=== PATIENT | female | born 1945 | race Caucasian/White ===

== ENCOUNTER 2018-01-02 09:18 | Emergency (ER) | payer MEDICARE ==
[~2018-01-02] VITALS: Ht 167.6 cm; Wt 70.0 kg
[~2018-01-02 09:18] MED LIST: DONE5TAB7 PO; LAMO150T PO; PANT20TA2 PO; SERO25TA PO
[2018-01-02 09:31] VITALS: BP 148/69; PULSE 82; RESP 18; TEMP 98.1; O2SAT 95
[2018-01-02 10:36] LABS: AUTOMATED NEUTROPHIL # 4.2 TH/MM3 (1.8-7.7); BASOPHIL % 0.7 % (0.0-2.0); EOSINOPHIL # 0.2 TH/MM3 (0-0.4); EOSINOPHIL % 3.6 % (0.0-4.0); HEMATOCRIT 38.2 % (35.0-46.0); HEMOGLOBIN 12.9 GM/DL (11.6-15.3); LYMPH % 20.2 % (9.0-44.0); LYMPHOCYTE # 1.3 TH/MM3 (1.0-4.8); MEAN CELL VOLUME 92.2 FL (80.0-100.0); MEAN CORPUSCULAR HGB CONC 33.6 % (32.0-36.0); MEAN PLATELET VOLUME 8.3 FL (7.0-11.0); MONO % 10.1 % (0.0-8.0); MONOCYTE # 0.6 TH/MM3 (0-0.9); NEUT % 65.4 % (16.0-70.0); PLATELET COUNT 265 TH/MM3 (150-450); RED BLOOD COUNT 4.15 MIL/MM3 (4.00-5.30); RED CELL DISTRIBUTION WIDTH 12.8 % (11.6-17.2); WHITE BLOOD COUNT 6.4 TH/MM3 (4.0-11.0)
[2018-01-02] MEDS ORDERED: DONE10TA7 PO (10:42)
[2018-01-02] MEDS ORDERED: QUET1TAB9 PO (10:42)
[2018-01-02] MEDS ORDERED: BUSP15TA PO (10:42)
[2018-01-02] MEDS ORDERED: CIME300T PO (10:42)
[2018-01-02] MEDS ORDERED: LOPE-1 PO (10:42)
[2018-01-02] MEDS ORDERED: ZOLO100T PO (10:42)
[2018-01-02] MEDS ORDERED: PRIM50 PO (10:42)
--- NOTE | 2018-01-02 10:44 | RADRPT ---
EXAM DATE/TIME: 01/02/2018 10:07 [facility] COMPARISON: No previous studies available for comparison. INDICATIONS : Shortness of breath for one day after fall. MEDICAL HISTORY : None. SURGICAL HISTORY : Hemorrhoidectomy. Hiatal hernia repair ENCOUNTER: Initial ACUITY: 1 day PAIN SCORE: 0/10 LOCATION: Bilateral chest FINDINGS: There is a mild infiltrate in the left lung base. There is some prominence of the pulmonary vasculatu re. The right lung is otherwise clear. The heart size is upper limits of normal. There is no pneumoth orax. The bony structures are grossly intact. CONCLUSION: 1. Mild left lower lung infiltrate. 2. Pulmonary venous congestion. Karsten Snider MD on January 02, 2018 at 10:41 Board Certified Radiologist. This report was verified electronically.
[2018-01-02 10:45] LABS: BILIRUBIN, URINE NEG (NEG); BLOOD, URINE SMALL (NEG); GLUCOSE,URINE NEG (NEG); KETONE, URINE NEG (NEG); MUCUS URINE FEW /lpf (OCC); NITRITE,URINE NEG (NEG); URINE COLOR YELLOW (YELLW/STRAW); URINE LEUKOCYTE ESTERASE NEG (NEG)
[2018-01-02] MEDS ORDERED: ZENP1000 PO (10:45)
[2018-01-02] MEDS ORDERED: DEXI60CA3 PO (10:45)
[2018-01-02] MEDS ORDERED: ACET-822 PO (10:45)
--- NOTE | 2018-01-02 10:47 | RADRPT ---
EXAM DATE/TIME: 01/02/2018 10:22 [facility] COMPARISON: CT BRAIN W/O CONTRAST, May 12, 2017, 13:16. INDICATIONS : Fall onto metal table today, laceration to forehead. RADIATION DOSE: 56.35 CTDIvol (mGy) MEDICAL HISTORY : Dementia. Seizures. SURGICAL HISTORY : None. ENCOUNTER: Initial ACUITY: 1 day PAIN SCALE: 6/10 LOCATION: Bilateral head TECHNIQUE: Multiple contiguous axial images were obtained of the head. Using automated exposure control and adj ustment of the mA and/or kV according to patient size, radiation dose was kept as low as reasonably a chievable to obtain optimal diagnostic quality images. DICOM format image data is available electro nically for review and comparison. FINDINGS: CEREBRUM: The ventricles are normal for age. No evidence of midline shift, mass lesion, hemorrhage or acute in farction. No extra-axial fluid collections are seen. POSTERIOR FOSSA: The cerebellum and brainstem are intact. The 4th ventricle is midline. The cerebellopontine angle i s unremarkable. EXTRACRANIAL: The visualized portion of the orbits is intact. There is chronic sinus disease in the maxillary sinus es bilaterally, right greater than left. There is mild subcutaneous emphysema in the soft tissues of the mid forehead. The adjacent calvarium is grossly intact. Frontal sinuses are clear. SKULL: The calvaria is intact. No evidence of skull fracture. No surrounding change compared to the prior exam. CONCLUSION: 1. Unremarkable and stable CT scan of the brain for patient's age. 2. Chronic changes characteristic of sinus disease in the maxillary sinuses, right greater than left. 3. Subcutaneous droplets of air in the soft tissues along the mid forehead. Karsten Snider MD on January 02, 2018 at 10:43 Board Certified Radiologist. This report was verified electronically.
[2018-01-02 10:51] LABS: ALBUMIN 3.9 GM/DL (3.4-5.0); ALT (GPT) 16 U/L (10-53); AST (GOT) 22 U/L (15-37); BICARBONATE 23.9 MEQ/L (21.0-32.0); BLOOD UREA NITROGEN 10 MG/DL (7-18); CALCIUM 9.2 MG/DL (8.5-10.1); CHLORIDE 106 MEQ/L (98-107); CREATININE 1.12 MG/DL (0.50-1.00); GLOMERULAR FILTRATION RATE 48 ML/MIN (>89); GLUCOSE,RANDOM 109 MG/DL (74-106); SODIUM (NA) 140 MEQ/L (136-145)
[2018-01-02 10:55] LABS: ALKALINE PHOSPHATASE 92 U/L (45-117); TOTAL BILIRUBIN ADULT 0.3 MG/DL (0.2-1.0); TOTAL PROTEIN 7.5 GM/DL (6.4-8.2)
[2018-01-02] MEDS ORDERED: LIDOCAINE HCL 1% 30 ML VIAL INFIL ONE (11:00)
--- NOTE | 2018-01-02 11:02 | PD ---
HPI Chief Complaint: Fall Time Seen by Provider: 09:21 (Devon Gruber MD) Travel History International Travel<30 days: No Contact w/Intl Traveler<30days: No Traveled to known affect area: No (Bel[place] Matamoros) International Travel<30 days: No Contact w/Intl Traveler<30days: No (Devon Gruber MD) History of Present Illness HPI 72-year-old female arrives by EMS from assisted living facility. She experienced a fall today. She fell forward striking her forehead on a metal table. Bleeding observed. Bleeding stopped with application of the wrap. Patient reports loss of memory associated with the fall however recalls falling and waking up on the ground. She takes aspirin. In the ER she has no complaint of chest pain nausea vomiting dizziness shortness of breath fever chills. (Devon Gruber MD) [facility] Past Medical History Anxiety: Yes Depression: Yes Dementia: Yes GERD: Yes Insomnia: Yes Seizures: Yes ?: Not (Belen Matamoros) Past Surgical History Abdominal Surgery: Yes (hiatal hernia repair) (Belen Matamoros) Social History Alcohol Use: No Tobacco Use: No Substance Use: No (Belen Matamoros) Allergies-Medications (Allergen,Severity, Reaction): Coded Allergies: amoxicillin (Unverified Allergy, Unknown, Hives, 06/30/17) cephalexin (Unverified Allergy, Unknown, Hives, 06/30/17) doxycycline (Unverified Allergy, Unknown, Hives, 06/30/17) Reported Meds & Prescriptions Reported Meds & Active Scripts Active Azithromycin 250 Mg Tab 250 Mg PO DAILY 4 Days Reported Zenpep (Pancrelipase) Unknown Strength Cap 2 Cap PO TIDAC Dexilant (Dexlansoprazole) 60 Mg Cap.dr.bp 60 Mg PO HS Tylenol Extra Strength (Acetaminophen) 500 Mg Tablet 500 Mg PO Q4HR PRN Imodium A-D (Loperamide HCl) 2 Mg Capsule 2 Mg PO DIRECTED PRN One capsule after each loose stool. Not to exceed 8 tablets per day. Buspirone (Buspirone HCl) 15 Mg Tab 15 Mg PO TID Mysoline (Primidone) 50 Mg Tab 50 Mg PO BID Cimetidine 300 Mg Tab 300 Mg PO BIDAC Zoloft (Sertraline HCl) 100 Mg Tab 150 Mg PO DAILY Quetiapine (Quetiapine Fumarate) 200 Mg Tab 200 Mg PO HS Donepezil 10 Mg Tab 10 Mg PO DAILY Lamotrigine 150 Mg Tab 150 Mg PO BID (Devon Gruber MD) Review of Systems Except as stated in HPI: all other systems reviewed are Neg General / Constitutional: No: Fever (Devon Gruber MD) Physical Exam Narrative GENERAL: 72-year-old female pleasant well-nourished well-developed no acute distress Vital Signs Date Time Temp Pulse Resp B/P (MAP) Pulse Ox O2 Delivery O2 Flow Rate FiO2 01/02/18 09:35 81 18 95 Nasal Cannula 2.00 2 09:31 98.1 82 18 148/69 (95) 95 Nasal Cannula 2.00 SKIN: Warm and dry. Overlying the region of the lateral left eyebrow there is a 3 cm laceration, curvilinear about 2 mm wide at the widest. Very superficial linear abrasion overlying the bridge of the nose. HEAD: Atraumatic. Normocephalic. EYES: Pupils equal and round. No scleral icterus. No injection or drainage. ENT: No nasal bleeding or discharge. Mucous membranes pink and moist. NECK: Trachea midline. No JVD. CARDIOVASCULAR: Regular rate and rhythm. RESPIRATORY: No accessory muscle use. Clear to auscultation. Breath sounds equal bilaterally. GASTROINTESTINAL: Abdomen soft, non-tender, nondistended. Hepatic and splenic margins not palpable. MUSCULOSKELETAL: Extremities without clubbing, cyanosis, or edema. No obvious deformities. NEUROLOGICAL: Awake and alert. No obvious cranial nerve deficits. Motor grossly within normal limits. Five out of 5 muscle strength in the arms and legs. Normal speech. PSYCHIATRIC: Appropriate mood and affect; insight and judgment normal. (Devon Gruber MD) Data Data Last Documented VS Vital Signs Date Time Temp Pulse Resp B/P (MAP) Pulse Ox O2 Delivery O2 Flow Rate FiO2 01/02/18 09:35 81 18 95 Nasal Cannula 2.00 218 09:31 98.1 148/69 (95) (Devon Gruber MD) Orders Orders Electrocardiogram (01/02/18 09:36) Complete Blood Count With Diff (01/02/18 09:36) Comprehensive Metabolic Panel (01/02/18 09:36) Iv Access Insert/Monitor (01/02/18 09:36) Urinalysis - C+S If Indicated (01/02/18 09:40) Ct Brain W/O Iv Contrast(Rout) (01/02/18 09:51) Chest, Single Ap (01/02/18 ) ^ Straight Catheter (01/02/18 09:51) Lidocaine Pf 1% Inj (Xylocaine-Mpf 1% In (01/02/18 11:15) Azithromycin (Zithromax) (01/02/18 12:00) Ed Discharge Order (01/02/18 11:48) (Devon Gruber MD) Labs Laboratory Tests Test 01/02/18 09:41 01/02/18 10:03 White Blood Count 6.4 TH/MM3 Red Blood Count 4.15 MIL/MM3 Hemoglobin 12.9 GM/DL Hematocrit 38.2 % Mean Corpuscular Volume 92.2 FL Mean Corpuscular Hemoglobin 31.0 PG Mean Corpuscular Hemoglobin Concent 33.6 % Red Cell Distribution Width 12.8 % Platelet Count 265 TH/MM3 Mean Platelet Volume 8.3 FL Neutrophils (%) (Auto) 65.4 % Lymphocytes (%) (Auto) 20.2 % Monocytes (%) (Auto) 10.1 % Eosinophils (%) (Auto) 3.6 % Basophils (%) (Auto) 0.7 % Neutrophils # (Auto) 4.2 TH/MM3 Lymphocytes # (Auto) 1.3 TH/MM3 Monocytes # (Auto) 0.6 TH/MM3 Eosinophils # (Auto) 0.2 TH/MM3 Basophils # (Auto) 0.0 TH/MM3 CBC Comment DIFF FINAL Differential Comment Blood Urea Nitrogen 10 MG/DL Creatinine 1.12 MG/DL Random Glucose 109 MG/DL Total Protein 7.5 GM/DL Albumin 3.9 GM/DL Calcium Level 9.2 MG/DL Alkaline Phosphatase 92 U/L Aspartate Amino Transf (AST/SGOT) 22 U/L Alanine Aminotransferase (ALT/SGPT) 16 U/L Total Bilirubin 0.3 MG/DL Sodium Level 140 MEQ/L Potassium Level 3.6 MEQ/L Chloride Level 106 MEQ/L Carbon Dioxide Level 23.9 MEQ/L Anion Gap 10 MEQ/L Estimat Glomerular Filtration Rate 48 ML/MIN Urine Color YELLOW Urine Turbidity CLEAR Urine pH 6.0 Urine Specific [place] 1.014 Urine Protein TRACE mg/dL Urine Glucose (UA) NEG mg/dL Urine Ketones NEG mg/dL Urine Occult Blood SMALL Urine Nitrite NEG Urine Bilirubin NEG Urine Urobilinogen LESS THAN 2.0 MG/DL Urine Leukocyte Esterase NEG Urine RBC 9 /hpf Urine WBC LESS THAN 1 /hpf Urine Mucus FEW /lpf Microscopic Urinalysis Comment CATH-CULT NOT IND (Devon Gruber MD) [facility] Medical Decision Making Medical Screen Exam Complete: Yes Emergency Medical Condition: Yes Differential Diagnosis Arrhythmia, intracranial hemorrhage, metabolic abnormality, anemia, contusion, laceration Narrative Course CBC & BMP Diagram 01/02/18 09:41 Total Protein 7.5, Albumin 3.9, Calcium Level 9.2, Alkaline Phosphatase 92, Aspartate Amino Transf (AST/SGOT) 22, Alanine Aminotransferase (ALT/SGPT) 16, Total Bilirubin 0.[address] 01/02/18 0951 Signed Impressions: Service Date/Time: Tuesday, January 02, 2018 10:22 - CONCLUSION: 1. Unremarkable and stable CT scan of the brain for patient's age. 2. Chronic changes characteristic of sinus disease in the maxillary sinuses, right greater than left. 3. Subcutaneous droplets of air in the soft tissues along the mid forehead. Karsten Snider MD Chest X-Ray 01/02/18 0000 Signed Impressions: Service Date/Time: Tuesday, January 02, 2018 10:07 - CONCLUSION: 1. Mild left lower lung infiltrate. 2. Pulmonary venous congestion. Karsten Snider MD Case was discussed with Dr. Trujillo. The patient was given azithromycin. He will follow up with her on Thursday. The patient ambulated in the ER without difficulty. Suture repair performed by MLP. (Devon Gruber MD) Diagnosis Primary Impression: Fall Qualified Codes: W19.XXXA - Unspecified fall, initial encounter Additional Impressions: Forehead laceration Qualified Codes: S01.81XA - Laceration without foreign body of other part of head, initial encounter Forehead contusion Qualified Codes: S00.83XA - Contusion of other part of head, initial encounter Pneumonia Qualified Codes: J18.9 - Pneumonia, unspecified organism Referrals: RETURN IN 7 DAYS FOR SUTURE REMOVAL 1 week Med/Other Pt SpecificInfo: Prescription(s) given (Devon Gruber MD) Scripts Azithromycin (Azithromycin) 250 Mg Tab 250 MG PO DAILY for Infection for 4 Days, #4 TAB 0 Refills Prov: Devon Gruber MD 01/02/18 Disposition: 01 DISCHARGE HOME Condition: Stable [place] Matamoros Jan 02, 2018 11:02 Devon Gruber MD Jan 02, 2018 11:27
[2018-01-02] MEDS ORDERED: LIDOCAINE HCL 1% PF 30 ML VIAL INFIL ONE (11:15)
[2018-01-02] MEDS ORDERED: AZIT250T3 PO (11:48)
[2018-01-02] MEDS ORDERED: AZITHROMYCIN 250 MG TAB PO ONE (12:00)
--- NOTE | 2018-01-02 13:15 | PD ---
Physical Exam Date Seen by Provider: Jan 02, 2018 Narrative I was asked to perform a laceration repair of the forehead and left brow. LACERATION LOCATION: Left eyelid LENGTH: 1.5 cm NUMBER OF STITCHES/ANTOINE: 4 REPAIR: The area of the laceration was prepped with Betadine and sterilely draped. The laceration was infiltrated with 1% lidocaine. The wound was copiously irrigated and explored without evidence of foreign body, tendon injury or neurovascular injury. The wound was closed using 6-0 prolene. This was a single layer repair. A sterile dressing was applied. The patient was advised to keep the dressing clean and dry. Patient tolerated the procedure well. LACERATION LOCATION: forehead/midbrow LENGTH: 3mm NUMBER OF STITCHES/ANTOINE: 2 REPAIR: The area of the laceration was prepped with Betadine and sterilely draped. The laceration was infiltrated with 1% lidocaine. The wound was copiously irrigated and explored without evidence of foreign body, tendon injury or neurovascular injury. The wound was closed using 6-0 prolene. This was a single layer repair. A sterile dressing was applied. The patient was advised to keep the dressing clean and dry. Patient tolerated the procedure well. Data Data Last Documented VS Vital Signs Date Time Temp Pulse Resp B/P (MAP) Pulse Ox O2 Delivery O2 Flow Rate FiO2 01/02/18 09:35 81 18 95 Nasal Cannula 2.00 01/02/18 09:31 98.1 148/69 (95) Orders Orders Electrocardiogram (01/02/18 09:36) Complete Blood Count With Diff (01/02/18 09:36) Comprehensive Metabolic Panel (01/02/18 09:36) Iv Access Insert/Monitor (01/02/18 09:36) Urinalysis - C+S If Indicated (01/02/18 09:40) Ct Brain W/O Iv Contrast(Rout) (01/02/18 09:51) Chest, Single Ap (01/02/18 ) ^ Straight Catheter (01/02/18 09:51) Lidocaine Pf 1% Inj (Xylocaine-Mpf 1% In (01/02/18 11:15) Azithromycin (Zithromax) (01/02/18 12:00) Ed Discharge Order (01/02/18 11:48) Labs Laboratory Tests Test 01/02/18 09:41 01/02/18 10:03 White Blood Count 6.4 TH/MM3 Red Blood Count 4.15 MIL/MM3 Hemoglobin 12.9 GM/DL Hematocrit 38.2 % Mean Corpuscular Volume 92.2 FL Mean Corpuscular Hemoglobin 31.0 PG Mean Corpuscular Hemoglobin Concent 33.6 % Red Cell Distribution Width 12.8 % Platelet Count 265 TH/MM3 Mean Platelet Volume 8.3 FL Neutrophils (%) (Auto) 65.4 % Lymphocytes (%) (Auto) 20.2 % Monocytes (%) (Auto) 10.1 % Eosinophils (%) (Auto) 3.6 % Basophils (%) (Auto) 0.7 % Neutrophils # (Auto) 4.2 TH/MM3 Lymphocytes # (Auto) 1.3 TH/MM3 Monocytes # (Auto) 0.6 TH/MM3 Eosinophils # (Auto) 0.2 TH/MM3 Basophils # (Auto) 0.0 TH/MM3 CBC Comment DIFF FINAL Differential Comment Blood Urea Nitrogen 10 MG/DL Creatinine 1.12 MG/DL Random Glucose 109 MG/DL Total Protein 7.5 GM/DL Albumin 3.9 GM/DL Calcium Level 9.2 MG/DL Alkaline Phosphatase 92 U/L Aspartate Amino Transf (AST/SGOT) 22 U/L Alanine Aminotransferase (ALT/SGPT) 16 U/L Total Bilirubin 0.3 MG/DL Sodium Level 140 MEQ/L Potassium Level 3.6 MEQ/L Chloride Level 106 MEQ/L Carbon Dioxide Level 23.9 MEQ/L Anion Gap 10 MEQ/L Estimat Glomerular Filtration Rate 48 ML/MIN Urine Color YELLOW Urine Turbidity CLEAR Urine pH 6.0 Urine Specific [place] 1.014 Urine Protein TRACE mg/dL Urine Glucose (UA) NEG mg/dL Urine Ketones NEG mg/dL Urine Occult Blood SMALL Urine Nitrite NEG Urine Bilirubin NEG Urine Urobilinogen LESS THAN 2.0 MG/DL Urine Leukocyte Esterase NEG Urine RBC 9 /hpf Urine WBC LESS THAN 1 /hpf Urine Mucus FEW /lpf Microscopic Urinalysis Comment CATH-CULT NOT IND MDM Supervised Visit with UMAIR: No Diagnosis Primary Impression: Fall Qualified Codes: W19.XXXA - Unspecified fall, initial encounter Additional Impressions: Forehead laceration Qualified Codes: S01.81XA - Laceration without foreign body of other part of head, initial encounter Forehead contusion Qualified Codes: S00.83XA - Contusion of other part of head, initial encounter Pneumonia Qualified Codes: J18.9 - Pneumonia, unspecified organism Referrals: RETURN IN 7 DAYS FOR SUTURE REMOVAL 1 week Patient Instructions: General Instructions Departure Forms: Tests/Procedures Scripts Azithromycin (Azithromycin) 250 Mg Tab 250 MG PO DAILY for Infection for 4 Days, #4 TAB 0 Refills Prov: Devon Gruber MD 01/02/18 Disposition: 01 DISCHARGE HOME Condition: Stable [place] Matamoros Jan 02, 2018 13:15
--- NOTE | 2018-01-02 13:27 | EKG ---
Date Performed: 01/02/2018 Time Performed: 09:42:53 PTAGE: 72 years EKG: Sinus rhythm POSSIBLE LEFT ATRIAL ENLARGEMENT LOW QRS VOLTAGE IN PRECORDIAL LEADS NONSPECIFIC T-WAVE ABNORMALITY BORDERLINE ECG NO PREVIOUS TRACING DOCTOR: Pj Fontanez Interpretating Date/Time 01/02/2018 13:24:47
== END 2018-01-02 15:45 | disposition home or self-care (01) ==
LOC: NEPC 09:18
DX: S01.81XA Laceration without foreign body of other part of head, initial encounter (principal); S01.112A Laceration without foreign body of left eyelid and periocular area, initial encounter; S00.83XA Contusion of other part of head, initial encounter; J18.9 Pneumonia, unspecified organism; R94.31 Abnormal electrocardiogram [ECG] [EKG]; F41.9 Anxiety disorder, unspecified; F03.90 Unspecified dementia, unspecified severity, without behavioral disturbance, psychotic disturbance, mood disturbance, and anxiety; R56.9 Unspecified convulsions; W18.09XA Striking against other object with subsequent fall, initial encounter
CPT/HCPCS: 12011; 70450; 71045; 80053; 81001; 85025; 93005